=== PATIENT | female | born 1995 | race Caucasian/White ===

== ENCOUNTER → 2022-08-31 | Outpatient (REF) | payer OTHER | LOC: M PLALAB 16:36 | PROVIDERS: ATTEND Nurse Practitioner Family | DX: Z53.20 Procedure and treatment not carried out because of patient's decision for unspecified reasons (principal) ==

== ENCOUNTER → 2022-12-23 | Outpatient (REF) | payer OTHER | LOC: M PLALAB 16:29 | PROVIDERS: ATTEND Nurse Practitioner Family | DX: Z12.4 Encounter for screening for malignant neoplasm of cervix (principal) ==